=== PATIENT | male | born 1945 | race Caucasian/White ===

== ENCOUNTER 2016-09-17 00:46 | Emergency (ER) | payer MEDICARE ==
[~2016-09-17] VITALS: Ht 180.3 cm; Wt 81.6 kg
[~2016-09-17 00:46] MED LIST: DOCU-143 PO; FURO-124 PO; HYDR-3812 PO; LISI1TAB6 PO; RIVA15TA PO
--- OUTSIDE RECORDS SUMMARY | 2016-09-17 00:51 | XMS REPORT | Continuity of Care Document ---
Author Author [facility] Organization [facility] Address Unknown Phone Unavailable Care Team Providers Care Ham Sawyer Name Role Phone LONBETHANYNANO DO PCP Insurance Providers Payer Name Policy Number Subscriber Name Relationship [employer] [id number] Edwardo Herron 20 Self / Same As Patient Advance Directives Directive Response Recorded Date/Time Advance Directives No 03/10/16 7:26pm Resuscitation Status Full Code 03/10/16 7:26pm Chief Complaint and Reason for Visit Chief Complaint Lower Extremity Reason for Visit NON-OCCLUSIVE DVT LEFT LOWER LEG Problems No problem information available. Medications Current Home Medications Medication Dose Units Route Directions Days/Qty Instructions Start Date Lisinopril/Hydrochlorothiazide 1 Each 1 Tab Oral Daily 08/13/15 Rivaroxaban 15 Mg 15 Mg Oral Bid@07,17 42 08/14/15 Past Home Medications Medication Directions Ordered Status Hydrocodone/Acetaminophen 1 Each Tablet, 1 Tab Oral Every 4HRS as needed for 07/27/15 Discontinued Docusate Sodium 100 Mg Capsule, 100 Mg Oral Twice A Day 07/27/15 Discontinued Furosemide 40 Mg Tablet, 40 Mg Oral Daily 08/13/15 Discontinued Social History Social History Problem Response Recorded Date/Time Alcohol Use Denies Use 08/12/2015 6:00pm Recreational Drug Use No 08/12/2015 6:00pm Recent Foreign Travel No 03/10/2016 7:26pm Recent Infectious Disease Exposure No 03/10/2016 7:26pm Hospitalization with Isolation Denies 03/10/2016 7:26pm Smoking Status Former Smoker 03/10/2016 8:39pm Do you dip or chew tobacco? No 08/12/2015 6:05pm Type Used Cigarettes 03/10/2016 7:26pm Recent Hopitalizations No 03/10/2016 7:26pm Hospitalization with Isolation Denies 03/10/2016 7:26pm Query Response Start Date Stop Date Smoking Status Former Smoker 07/31/1998 Hospital Discharge Instructions No hospital discharge instructions. Plan of Care Discharge Date 03/10/16 8:59pm Disposition 01 HOME, SELF-CARE Condition at Discharge Improved Instructions/Education Provided 2 Gram Sodium Diet (ED) Deep Venous Thrombosis (ED) Prescriptions See Medication Section Referrals NANO FELIX DO - Primary Care Physician NANO FELIX DO - Primary Care Physician DEZ BAILEY MD FACP FACC CCDS - Additional Instructions/Education WEAR OMAYRA HOSE AT ALL TIMES ELEVATE LEGS MUCH POSSIBLE LIMIT SODIUM INTAKE TO 2 GRAMS PER DAY CONTINUE YOUR CURRENT MEDICATIONS PRESCRIBED, INCLUDING XARELTO KEEP YOUR APPOINTMENT WITH DR. BAILEY TOMORROW MORNING. All discharge instructions reviewed with patient and/or family. Voiced understanding. Functional Status No functional status results. Allergies, Adverse Reactions, Alerts No known allergies. Immunizations No immunization records. Vital Signs Acute Vital Signs Vital Response Date/Time Temperature (Fahrenheit) 99.6 degrees F (97.6 - 99.5) 03/10/2016 7:26pm Temperature (Calculated Celsius) 37.81034 degrees C (36.4 - 37.5) 03/10/2016 7:26pm Pulse Rate (adult) 98 bpm (60 - 90) 03/10/2016 7:26pm Respiratory Rate 18 bpm (12 - 24) 03/10/2016 7:26pm O2 Sat by Pulse Oximetry 96 % (88 - 100) 03/10/2016 7:26pm Pain Numeric Pain Scale 0-No Pain 03/10/2016 7:26pm Height (Feet) 5 feet 03/10/2016 7:26pm Height (Inches) 11 inches 03/10/2016 7:26pm Height (Calculated Centimeters) 180.192695 cm 03/10/2016 7:26pm Weight (Pounds) 180 pounds 03/10/2016 7:26pm Weight (Calculated Kilograms) 81.702354 kilograms 03/10/2016 7:26pm Capillary Refill Capillary Refill Less Than 3 Seconds 03/10/2016 7:26pm Height 5 ft 11 in Weight 180 lb Body Mass Index 25.1 kg/m^2 Results Laboratory Results Test Name Result Units Flags Reference Collection Date/Time Result Date/ Time Comments White Blood Count 11.3 10^3/uL H 4.3-11.0 03/10/2016 7:39pm 03/10/2016 7: 55pm Red Blood Count 4.46 10^6/uL 4.35-5.85 03/10/2016 7:39pm 03/10/2016 7: 55pm Hemoglobin 12.0 G/DL L 13.3-17.7 03/10/2016 7:39pm 03/10/2016 7:55pm Hematocrit 37 % L 40-54 03/10/2016 7:39pm 03/10/2016 7:55pm Mean Corpuscular Volume 82 FL 80-99 03/10/2016 7:39pm 03/10/2016 7: 55pm Mean Corpuscular Hemoglobin 27 PG 25-34 03/10/2016 7:39pm 03/10/2016 7: 55pm Mean Corpuscular Hemoglobin Concent 33 G/DL 32-36 03/10/2016 7:39pm 05/2016 7:55pm Red Cell Distribution Width 13.3 % 10.0-14.5 03/10/2016 7:39pm 2015 7:55pm Platelet Count 210 10^3/uL 130-400 03/10/2016 7:39pm 03/10/2016 7:55pm Mean Platelet Volume 9.6 FL 7.4-10.4 03/10/2016 7:39pm 03/10/2016 7: 55pm Neutrophils (%) (Auto) 50 % 42-75 03/10/2016 7:39pm 03/10/2016 7:55pm Lymphocytes (%) (Auto) 34 % 12-44 03/10/2016 7:39pm 03/10/2016 7:55pm Monocytes (%) (Auto) 14 % H 0-12 03/10/2016 7:39pm 03/10/2016 7:55pm Eosinophils (%) (Auto) 1 % 0-10 03/10/2016 7:39pm 03/10/2016 7:55pm Basophils (%) (Auto) 0 % 0-10 03/10/2016 7:39pm 03/10/2016 7:55pm Neutrophils # (Auto) 5.6 X 10^3 1.8-7.8 03/10/2016 7:39pm 03/10/2016 7: 55pm Lymphocytes # (Auto) 3.9 X 10^3 1.0-4.0 03/10/2016 7:39pm 03/10/2016 7: 55pm Monocytes # (Auto) 1.6 X 10^3 H 0.0-1.0 03/10/2016 7:39pm 03/10/2016 7: 55pm Eosinophils # (Auto) 0.2 10^3/uL 0.0-0.3 03/10/2016 7:39pm 03/10/2016 7 :55pm Basophils # (Auto) 0.1 10^3/uL 0.0-0.1 03/10/2016 7:39pm 03/10/2016 7: 55pm Prothrombin Time 18.9 SEC H 12.2-14.7 03/10/2016 7:39pm 03/10/2016 8: 03pm INR Comment 1.6 H 0.8-1.4 03/10/2016 7:39pm 03/10/2016 8:03pm INTERPRETIVE DATA SUGGESTED THERAPEUTIC RANGE FOR INR'S: VENOUS THROMBOSIS, PULMONARY EMBOLISM, OR PREVENTION OF SYSTEMIC EMBOLISM (EG. IN ATRIAL FIBRILLATION): 2.0 - 3.0 MECHANICAL PROSTHETIC HEART VALVES: 2.5 - 3.5* *NOTE: INR'S UP TO 4.5 MAY BE NECESSARY IN SELECTED GROUPS OF HIGH RISK PATIENTS. [employer] CONSENSUS CONFERENCE ON ANTITHROMBOTIC THERAPY (2000). Activated Partial Thromboplast Time 33 SEC 24-35 03/10/2016 7:39pm 05/2016 8:03pm Sodium Level 138 MMOL/L 135-145 03/10/2016 7:39pm 03/10/2016 8:14pm Potassium Level 3.8 MMOL/L 3.6-5.0 03/10/2016 7:39pm 03/10/2016 8:14pm Chloride Level 105 MMOL/L 98-107 03/10/2016 7:39pm 03/10/2016 8:14pm Carbon Dioxide Level 24 MMOL/L 21-32 03/10/2016 7:39pm 03/10/2016 8: 14pm Anion Gap 9 MMOL/L 5-14 03/10/2016 7:39pm 03/10/2016 8:14pm Blood Urea Nitrogen 17 MG/DL 7-18 03/10/2016 7:39pm 03/10/2016 8:14pm Creatinine 1.46 MG/DL H 0.60-1.30 03/10/2016 7:39pm 03/10/2016 8:14pm BUN/Creatinine Ratio 12 03/10/2016 7:39pm 03/10/2016 8:14pm Estimat Glomerular Filtration Rate 48 03/10/2016 7:39pm 03/10/2016 8:14pm GFR INTERPRETIVE DATA UNITS FOR ESTIMATED GFR (eGFR): mL/min/1.73 M2 REFERENCE RANGE FOR ESTIMATED GFR (eGFR) eGFR NORMAL eGFR >60 MODERATELY DECREASED eGFR 30-59 SEVERLY DECREASED eGFR 15-29 KIDNEY FAILURE <15 (OR DIALYSIS) Glucose Level 108 MG/DL H 70-105 03/10/2016 7:39pm 03/10/2016 8:14pm Calcium Level 9.7 MG/DL 8.5-10.1 03/10/2016 7:39pm 03/10/2016 8:14pm Procedures No known history of procedures. Encounters Encounter Location Arrival/Admit Date Discharge/Depart Date Attending Provider Departed Emergency Room [facility] 03/10/16 7:21pm 03/10 8:59pm LYNDSAY NG DO Recent Diagnosis
--- NOTE | 2016-09-17 00:57 | ED Lower Extremity ---
General Chief Complaint: Laceration Stated Complaint: LAC Nursing Triage Note: patient reports L foot bleeding after scratching himself Nursing Sepsis Screen: No Definite Risk Source: patient, EMS History of Present Illness Time seen by provider: 00:44 Initial Comments PT ARRIVES VIA EMS FROM HOME AT [facility] PT STATES HE WAS SITTING ON TOILET AND SCRATCHED HIS LEFT ANKLE AND IT BEGAN TO BLEED, AND HE GOT SCARED, SO CALLED NEUROPSYCHOLOGY DIVISION CHIEF, WHO CALLED EMS FOR PT. BLEEDING HAS STOPPED AT THIS TIME NO PAIN PT HAD SIMILAR 3-4 MONTHS AGO, BUT WAS ON BLOOD THINNER AT THAT TIME ( ? XARELTO ? ) FOR RECURRENT DVT OF LEFT LEG PT IS NO LONGER ON ANY KIND OF BLOOD THINNER, NOT EVEN ASPIRIN PCP: DR. FELIX [employer] SUPERVISOR: DR. BAILEY Allergies and Home Medications Allergies Coded Allergies: No Known Drug Allergies (Unverified , 07/22/15) Home Medications Lisinopril/Hydrochlorothiazide 1 Each Tablet 1 TAB PO DAILY (Reported) Rivaroxaban 15 Mg Tablet #42 15 MG PO BID@07,17 Prescribed by: GENARO RIVERA on 08/14/15 1048 Constitutional: no symptoms reported Musculoskeletal: see HPI Skin: see HPI Psychiatric/Neurological: No Symptoms Reported Past [id number] Hx Patient Social History Alcohol Use: Denies Use Recreational Drug Use: No Smoking Status: Former Smoker (QUIT SEVERAL YEARS AGO) Type Used: Cigarettes Former Smoker/When Quit: Jul 31, 1998 Recent Foreign Travel: No Contact w/Someone Who Travel: No Recent Infectious Disease Expo: No Recent Hopitalizations: No Immunizations Up To Date Tetanus Booster (TDap): Unknown Date of Pneumonia Vaccine: Jul 21, 2015 Date of Influenza Vaccine: Apr 30, 2015 Surgeries HX Surgeries: Yes (UMBILICAL HERNIA REPAIR 07/27/15) Surgeries: Abdominal Respiratory Hx Respiratory Disorders: No Cardiovascular Hx Cardiac Disorders: Yes (RECURRENT DVT LEFT LEG-- INITAL ONE 03/2015 WAS AFTER HE SUSTAINED A LEFT TIBIAL PLATUEAU FX AND WAS TREATED WITH IMMMOBILIZATION. THEN HAD POST OP DVT OF LEFT LEG 07/2015 AFTER HERNIA REPAIR; THEN HAD ANOTHER ONE 02/2016 AFTER SITTING NEARLY CONSTANTLY ALL DAY EVERY DAY FOR A MONTH, WHILE HIS WAS IN HOSPITAL DYING OF CANCER. ) Cardiac Disorders: Chronic Edema/Swelling, Deep Vein Thrombosis, Hypertension Neurological Hx Neurological Disorders: Yes (MILD MENTAL DEFICIENCY) Reproductive System Hx Reproductive Disorders: No Genitourinary Hx Genitourinary Disorders: No Gastrointestinal Hx Gastrointestinal Disorders: No Musculoskeletal Hx Musculoskeletal Disorders: Yes (LEFT TIBIAL PLATEAU FX 03/2015--[place] WITH IMMOBILIZATION) Endocrine Hx Endocrine Disorders: No HEENT HX ENT Disorders: No Cancer Hx Cancer: No Psychosocial Hx Psychiatric Problems: Yes (MILD MENTAL DEFICIENCY) Integumentary HX Skin/Integumentary Disorder: No Blood Transfusions Hx Blood Disorders: Yes (MULTIPLE DVT'S LEFT LEG) Family Medical History Family Medial History: Colon cancer Coronary thrombosis Physical Exam Vital Signs Vital Sign - Last 12Hours 09/17/16 00:48 Temp 98.2 Pulse 76 Resp 18 Pulse Ox 98 O2 Delivery Room Air Capillary Refill : Less Than 3 Seconds General Appearance: WD/WN no apparent distress other (ANXIOUS) HEENT: other (EDENTULOUS) Cardiovascular: regular rate, rhythm no murmur Respiratory: normal breath sounds Hips: bilateral hip normal inspection Legs: bilateral leg other (2+ EDEMA BILATERALLY) Knees: bilateral knee normal inspection Ankles: bilateral ankle other (2 + EDEMA BILATERALLY. NO ACTIVE BLEEDING. APPEARS TO HAVE A PINPOINT ABRASION OVER A SMALL, SUPERFICIAL VARICOSE VEIN OVER LEFT LATERAL MALLEOLUS. ALSO HAS A VERY SUPERFICIAL ABRASION JUST PROXIMAL TO THAT THAT WOULD BE CONSISTENT WITH SCRATCH BALDERAS-NO BLEEDING AT THIS SITE EITHER. AREA IS NON-TENDER. NO BRUISING OR FOCAL SWELLING AROUND THESE AREAS. 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 nml as tested no motor/sensory deficits alert normal mood/affect oriented x 3 Skin: normal color warm/dry other ( ABOVE) Progress/Results/Core Measures Results/Orders My Orders Orders-LYNDSAY NG DO Wound Dressing-Ed (09/17/16 00:54) Clonidine Tablet (Catapres Tablet) (09/17/16 01:00) Clonidine Tablet (Catapres Tablet) (09/17/16 01:00) Clonidine Tablet (Catapres Tablet) (09/17/16 01:00) Medications Given in ED Current Medications Medications Dose Ordered Sig/Thuan Route Start Time Stop Time Status Last Admin Dose Admin Clonidine HCl 0.2 mg ONCE ONCE PO 09/17/16 01:00 09/17/16 01:01 DC 09/17/16 00:59 0.2 MG Vital Signs/I&O Vital Sign - Last 12Hours 09/17/16 09/17/16 00:48 01:40 Temp 98.2 Pulse 76 66 Resp 18 18 B/P Pulse Ox 98 97 O2 Delivery Room Air Progress Note : Progress Note NO BLEEDING AT ANY TIME DURING ER STAY AREA CLEANED AND DRESSED WITH TRIPLE ANTIBIOTIC AND STERILE DRESSING GIVEN CLONIDINE FOR ELEVATED BP--BP DOWN PRIOR TO DISMISSAL UNEVENTFUL ER STAY Departure Impression Impression: Primary Impression: Abrasion, left ankle, initial encounter Additional Impression: Uncontrolled hypertension Disposition: HOME, SELF-CARE Condition: Stable Departure-Patient Inst. Referrals: NANO FELIX DO (PCP/Family) Primary Care Physician Patient Instructions: High Blood Pressure (DC), Skin Abrasions (DC) Add. Discharge Instructions: LEAVE DRESSING IN PLACE FOR 24 HOURS, THEN CLEAN TWICE A DAY WITH ANTIBACTERIAL SOAP AND WATER, AND APPLY FRESH BAND AID TO AREA IF AREA BEGINS TO BLEED AGAIN, APPLY PRESSURE, ELEVATE LEG AND APPLY ICE TO AREA TAKE YOUR MEDICATIONS PRESCRIBED FOLLOW UP WITH YOUR DR NEXT WEEK FOR FURTHER CARE All discharge instructions reviewed with patient and/or family. Voiced understanding. LYNDSAY NG DO Sep 17, 2016 00:57 LYNDSAY NG DO Sep 17, 2016 00:57
[2016-09-17] MEDS ORDERED: cloNIDine 0.1 MG (CATAPRES) TAB PO ONE (01:00)
[2016-09-17] MEDS ORDERED: cloNIDine 0.2 MG (CATAPRES) TAB PO ONE ×2 (01:00)
[2016-09-17 01:40] VITALS: BP 168/94
== END 2016-09-17 01:39 | disposition home or self-care (01) ==
LOC: EDUNIT# 00:46 → ER 00:48
DX: S90.512A Abrasion, left ankle, initial encounter (principal); I10 Essential (primary) hypertension; Z79.899 Other long term (current) drug therapy; Z87.891 Personal history of nicotine dependence; Z86.718 Personal history of other venous thrombosis and embolism; X58.XXXA Exposure to other specified factors, initial encounter; Y92.29 Other specified public building as the place of occurrence of the external cause; Y99.8 Other external cause status
CPT/HCPCS: 99283

== ENCOUNTER → 2017-02-24 | Outpatient (CLI) | payer MEDICARE ==
--- NOTE | 2017-02-24 14:20 | Diagnostic Imaging Report ---
INDICATION: Renal insufficiency. FINDINGS: There is [id number] bilateral hydronephrosis. The right kidney measures approximately 11.6 x 6.6 x 7 cm. Left kidney measures 12.3 x 6.6 x 6.2 cm. There is mild thinning of the renal cortex bilaterally. No renal calculi or masses demonstrated. The bladder is distended measuring upwards of the 24 cm in diameter. Bladder wall is smooth. Patient did not have sensation that he needed to empty bladder. IMPRESSION: 1. Bilateral moderate hydronephrosis with distended bladder. The cyst consistent with chronic outlet obstruction. Dictated by: Dictated on workstation # [id number]
== END ==
LOC: RAD 13:22
PROVIDERS: ATTEND Family Medicine
DX: N13.30 Unspecified hydronephrosis (principal); N32.89 Other specified disorders of bladder; I10 Essential (primary) hypertension
CPT/HCPCS: 76770

== ENCOUNTER 2017-03-21 10:56 | Outpatient (CLI) | payer MEDICARE ==
[~2017-03-21] VITALS: Ht 180.3 cm; Wt 89.4 kg
[2017-03-21 13:49] VITALS: BP 137/86
[2017-03-21] MEDS ORDERED: AMLO5TAB2 PO (13:57)
[2017-03-21] MEDS ORDERED: METO-274 PO (13:57)
[2017-03-21] MEDS ORDERED: BETH25TA11 PO (13:57)
[2017-03-21] MEDS ORDERED: FINA5TAB6 PO (13:57)
[2017-03-21] MEDS ORDERED: CIPR250T3 PO (13:57)
[2017-03-21] MEDS ORDERED: TAMS0.4C98 PO (13:57)
== END 2017-03-21 14:10 | disposition home or self-care (01) ==
LOC: PREOP 10:56
PROVIDERS: ATTEND Urology
DX: Z01.818 Encounter for other preprocedural examination (principal); R33.9 Retention of urine, unspecified
CPT/HCPCS: 87081

== ENCOUNTER 2017-03-22 07:14 | Day surgery (SDC) | payer MEDICARE ==
[~2017-03-22] VITALS: Ht 180.3 cm; Wt 89.4 kg
[2017-03-22 07:14] VITALS: BP 163/85
[~2017-03-22 07:14] MED LIST changes: +AMLO5TAB2 PO; +BETH25TA11 PO; +CIPR250T3 PO; +FINA5TAB6 PO; +METO-274 PO; +TAMS0.4C98 PO
--- OUTSIDE RECORDS SUMMARY | 2017-03-22 07:18 | XMS REPORT | Continuity of Care Document ---
Author Author [facility] Organization [facility] Address Unknown Phone Unavailable Allergies Active Description Code Type Severity Reaction Onset Reported/Identified Relationship to Patient Clinical Status Yes No Known Drug Allergies [id number] Drug Allergy Unknown N/ A 07/22/2015 Medications Problems Date Dx Coded Attending Type Code Diagnosis Diagnosed By 06/12/2015 NANO FELIX DO Ot R05 06/12/2015 NANO FELIX DO Ot R60.9 07/27/2015 NANO FELIX DO Ot R05 07/27/2015 NANO FELIX DO Ot R60.9 07/27/2015 ANKUSH YUAN APRN Ot S82.142D 07/27/2015 ANKUSH YUAN POLITICAL AIDE Ot W51.XXXD 07/27/2015 ANKUSH YUAN POLITICAL AIDE Ot Y92.321 07/27/2015 ANKUSH YUAN APRN Ot Y99.2 07/27/2015 IMAN MCCALL DO Ot K42.9 07/27/2015 MCCALLIMAN BAPTISTE DO D Ot Z01.818 07/27/2015 MCCALLJOYCELYN BAPTISTE DOTT D Ot Z11.2 07/27/2015 MCCALLJOYCELYN BPATISTE DOTT D Ot K42.9 07/27/2015 MCCALLJOYCELYN BAPTISTE DOTT D Ot Z01.818 07/27/2015 MCCALL DO IMAN D Ot Z11.2 07/27/2015 MCCALLOLIVA COSTA IMAN D Ot K42.9 UMBILICAL HERNIA WITHOUT OBSTRUCTION OR 07/27/2015 IMAN MCCALL DO Ot Z11.2 ENCOUNTER FOR SCREENING FOR OTHER BACTER 07/28/2015 ANKUSH YUAN POLITICAL AIDE Ot S82.142D 07/28/2015 ANKUSH YUAN POLITICAL AIDE Ot W51.XXXD 07/28/2015 ANKUSH YUAN POLITICAL AIDE Ot Y92.321 07/28/2015 LISSY, ANKUSH E POLITICAL AIDE Ot Y99.2 08/14/2015 [facility] Gooden Ot F79 UNSPECIFIED INTELLECTUAL DISABILITIES 08/14/2015 ISDIRO COSTA, NANO Gooden Ot I10 ESSENTIAL (PRIMARY) HYPERTENSION 08/14/2015 [facility] Gooden Ot I82.412 ACUTE EMBOLISM AND THROMBOSIS OF LEFT FE 08/14/2015 [facility] Gooden Ot I82.432 ACUTE EMBOLISM AND THROMBOSIS OF LEFT PO 08/14/2015 [facility], NANO Gooden Ot Z82.3 FAMILY HISTORY OF STROKE 08/14/2015 [facility], NANO Gooden Ot Z87.891 PERSONAL HISTORY OF NICOTINE DEPENDENCE 09/03/2015 ANAMARIA DO, KIN Lee Ot R22.42 09/17/2015 LISSY, ANKUSH E POLITICAL AIDE Ot S82.142D DISPL BICONDYLAR FX L TIBIA, SUBS FOR CL 09/17/2015 LISSY, ANKUSH E POLITICAL AIDE Ot W51.XXXD ACCIDENTAL STRIKE OR BUMPED INTO BY ANOT 09/17/2015 LISSY, ANKUSH E POLITICAL AIDE Ot Y92.[address] 09/17/2015 LISSY, ANKUSH E POLITICAL AIDE Ot Y99.2 VOLUNTEER ACTIVITY 09/23/2015 LISSY, ANKUSH E POLITICAL AIDE Ot S82.142D 09/23/2015 LISSY, ANKUSH E POLITICAL AIDE Ot W51.XXXD 09/23/2015 LISSY, ANKUSH E POLITICAL AIDE Ot Y92.321 09/23/2015 LISSY, ANKUSH E POLITICAL AIDE Ot Y99.2 10/09/2015 LISSY, ANKUSH E POLITICAL AIDE Ot S82.142D DISPL BICONDYLAR FX L TIBIA, SUBS FOR CL 10/09/2015 LISSY, ANKUSH E POLITICAL AIDE Ot W51.XXXD ACCIDENTAL STRIKE OR BUMPED INTO BY ANOT 10/09/2015 LISSY, ANKUSH E POLITICAL AIDE Ot Y92.[address] 10/09/2015 LISSY, ANKUSH E POLITICAL AIDE Ot Y99.2 VOLUNTEER ACTIVITY 03/10/2016 LYNDSAY NG DO Ot I82.432 ACUTE EMBOLISM AND THROMBOSIS OF LEFT PO 03/10/2016 LYNDSAY NG DO Ot M79.89 OTHER SPECIFIED SOFT TISSUE DISORDERS 03/10/2016 LYNDSAY NG DO Ot R60.0 LOCALIZED EDEMA 03/10/2016 BERENICE COSTA LYNDSAY [place] Ot Z79.01 INTERMEDIATE (CURRENT) USE OF ANTICOAGULANT 03/10/2016 BERENICE LYNDSAY COSTA Ot Z86.718 PERSONAL HISTORY OF OTHER VENOUS THROMBO 03/14/2016 BERENICE LYNDSAY COSTA Ot I82.432 ACUTE EMBOLISM AND THROMBOSIS OF LEFT PO 03/14/2016 BERENICE LYNDSAY COSTA Ot M79.89 OTHER SPECIFIED SOFT TISSUE DISORDERS 03/14/2016 BERENICE LYNDSAY COSTA Ot R60.0 LOCALIZED EDEMA 03/14/2016 BERENICE DO LYNDSAY K Ot Z79.01 BRINE PURIFIER (CURRENT) USE OF ANTICOAGULANT 03/14/2016 BERENICE DO LYNDSAY K Ot Z86.718 PERSONAL HISTORY OF OTHER VENOUS THROMBO 07/12/2016 [facility] Ot R05 COUGH 07/12/2016 [facility] DON[facility] Ot R60.9 EDEMA, UNSPECIFIED 07/12/2016 ZEBULON DOIMAN Ot K42.9 UMBILICAL HERNIA WITHOUT OBSTRUCTION OR 07/12/2016 MCCALLIMAN BAPTISTE DO Ot Z01.818 ENCOUNTER FOR OTHER PREPROCEDURAL EXAMIN 07/12/2016 ZEBULON IMAN COSTA Ot Z11.2 ENCOUNTER FOR SCREENING FOR OTHER BACTER 07/12/2016 KIN CONRAD DO Ot R22.42 LOCALIZED SWELLING, MASS AND LUMP, LEFT 08/09/2016 [facility] NANO COSTA Ot R59.0 LOCALIZED ENLARGED LYMPH NODES 09/17/2016 LYNDSAY NG DO Ot I10 ESSENTIAL (PRIMARY) HYPERTENSION 09/17/2016 LYNDSAY NG DO Ot S90.512A ABRASION, LEFT ANKLE, INITIAL ENCOUNTER 09/17/2016 LYNSDAY NG DO Ot S91.012A LACERATION WITHOUT FOREIGN BODY, LEFT AN 09/17/2016 LYNDSAY NG DO Ot X58.XXXA EXPOSURE TO OTHER SPECIFIED FACTORS, INI 09/17/2016 LYNDSAY NG DO Ot Y92.[address] 09/17/2016 LYNDSAY NG DO Ot Y99.8 OTHER EXTERNAL CAUSE STATUS 09/17/2016 LYNDSAY NG DO Ot Z79.899 OTHER INTERMEDIATE (CURRENT) DRUG THERAPY 09/17/2016 LYNDSAY NG DO Ot Z86.718 PERSONAL HISTORY OF OTHER VENOUS THROMBO 09/17/2016 LYNSDAY NG DO Ot Z87.891 PERSONAL HISTORY OF NICOTINE DEPENDENCE 09/20/2016 LYNDSAY NG DO Ot I10 ESSENTIAL (PRIMARY) HYPERTENSION 09/20/2016 LYNDSAY NG DO Ot S90.512A ABRASION, LEFT ANKLE, INITIAL ENCOUNTER 09/20/2016 LYNDSAY NG DO Ot S91.012A LACERATION WITHOUT FOREIGN BODY, LEFT AN 09/20/2016 LYNDSAY NG DO Ot X58.XXXA EXPOSURE TO OTHER SPECIFIED FACTORS, INI 09/20/2016 LYNDSAY NG DO Ot Y92.[address] 09/20/2016 LYNDSAY NG DO Ot Y99.8 OTHER EXTERNAL CAUSE STATUS 09/20/2016 LYNDSAY NG DO Ot Z79.899 OTHER INTERMEDIATE (CURRENT) DRUG THERAPY 09/20/2016 LYNDSAY NG DO Ot Z86.718 PERSONAL HISTORY OF OTHER VENOUS THROMBO 09/20/2016 LYNDSAY NG DO Ot Z87.891 PERSONAL HISTORY OF NICOTINE DEPENDENCE 02/27/2017 LONDER DO, NANO Gooden Ot I10 ESSENTIAL (PRIMARY) HYPERTENSION 02/27/2017 GELLENDER DO, NANO Gooden Ot N13.30 UNSPECIFIED HYDRONEPHROSIS 02/27/2017 GELLENDER DO, NANO Gooden Ot N32.89 OTHER SPECIFIED DISORDERS OF BLADDER 02/28/2017 GELLENDER DO, NANO Gooden Ot I10 ESSENTIAL (PRIMARY) HYPERTENSION 02/28/2017 GELLENDER DO, NANO Gooden Ot N13.30 UNSPECIFIED HYDRONEPHROSIS 02/28/2017 GELLENDER DO, NANO Gooden Ot N32.89 OTHER SPECIFIED DISORDERS OF BLADDER 02/28/2017 GELLENDER DO, NANO Gooden Ot I10 ESSENTIAL (PRIMARY) HYPERTENSION 02/28/2017 GELLENDER DO, NANO Gooden Ot N13.30 UNSPECIFIED HYDRONEPHROSIS 02/28/2017 GELLENDER DO, NANO Gooden Ot N32.89 OTHER SPECIFIED DISORDERS OF BLADDER Procedures Results Test Result Range Complete blood count (CBC) with automated white blood cell (WBC) differential - 03/10/16 19:39 Blood leukocytes automated count (number/volume) 11.3 10*3/ uL 4.3-11.0 Blood erythrocytes automated count (number/volume) 4.46 10*6 /uL 4.35-5.85 Venous blood hemoglobin measurement (mass/volume) 12.0 g/dL 13.3-17.7 Blood hematocrit (volume fraction) 37 % 40-54 Automated erythrocyte mean corpuscular volume 82 [foz_us] 80-99 Automated erythrocyte mean corpuscular hemoglobin (mass per erythrocyte) 27 pg 25-34 Automated erythrocyte mean corpuscular hemoglobin concentration measurement ( mass/volume) 33 g/dL 32-36 Automated erythrocyte distribution width ratio 13.3 % 10.0-14.5 Automated blood platelet count (count/volume) 210 10*3/uL 130-400 Automated blood platelet mean volume measurement 9.6 [foz_us ] 7.4-10.4 Automated blood neutrophils/100 leukocytes 50 % 42-75 Automated blood lymphocytes/100 leukocytes 34 % 12-44 Blood monocytes/100 leukocytes 14 % 0-12 Automated blood eosinophils/100 leukocytes 1 % 0-10 Automated blood basophils/100 leukocytes 0 % 0-10 Blood neutrophils automated count (number/volume) 5.6 10*3 1.8-7.8 Blood lymphocytes automated count (number/volume) 3.9 10*3 1.0-4.0 Blood monocytes automated count (number/volume) 1.6 10*3 0.0-1.0 Automated eosinophil count 0.2 10*3/uL 0.0-0.3 Automated blood basophil count (count/volume) 0.1 10*3/uL 0.0-0.1 PT panel in platelet poor plasma by coagulation assay - 03/10/16 19:39 Prothrombin time (PT) in platelet poor plasma by coagulation assay 18.9 s 12.2-14.7 INR in platelet poor plasma or blood by coagulation assay 1.6 0.8-1.4 Activated partial thromboplastin time (aPTT) in platelet poor plasma bycoagulation assay - 03/10/16 19:39 Activated partial thromboplastin time (aPTT) in platelet poor plasma bycoagulation assay 33 s 24-35 Whole blood basic metabolic panel - 03/10/16 19:39 Serum or plasma sodium measurement (moles/volume) 138 mmol/ L 135-145 Serum or plasma potassium measurement (moles/volume) 3.8 mmol/L 3.6-5.0 Serum or plasma chloride measurement (moles/volume) 105 mmol /L 98-107 Carbon dioxide 24 mmol/L 21-32 Serum or plasma anion gap determination (moles/volume) 9 mmol/L 5-14 Serum or plasma urea nitrogen measurement (mass/volume) 17 mg/dL 7-18 Serum or plasma creatinine measurement (mass/volume) 1.46 mg /dL 0.60-1.30 Serum or plasma urea nitrogen/creatinine mass ratio 12 NRG Serum or plasma creatinine measurement with calculation of estimated glomerular filtration rate 48 NRG Serum or plasma glucose measurement (mass/volume) 108 mg/dL 70-105 Serum or plasma calcium measurement (mass/volume) 9.7 mg/dL 8.5-10.1 Encounters ACCT No. Visit Date/Time Discharge Status Pt. Type Provider Facility Loc./Unit Complaint [id number] 02/24/2017 13:22:00 2016 23:59:59 CLS Outpatient NANO FELIX DO [facility] RAD HYPERTENSION [id number] 09/17/2016 00:48:00 2016 01:39:00 DIS Emergency LYNDSAY NG DO [facility] ER LAC [id number] 07/12/2016 11:48:00 2015 23:59:59 CLS Outpatient NANO FELIX DO [facility] RAD LEFT INGUINAL LYMPH NODE [id number] 03/10/2016 19:21:00 2015 20:59:00 DIS Emergency BERENICE LYNDSAY COSTA [facility] ER L LEG SWELLING,PAIN [id number] 09/25/2015 09:31:00 2015 12:10:00 DIS Outpatient ANKUSH YUAN APRN [facility] REHAB L KNEE LATERAL TIBIAL PLATEAU FRACTURE [id number] 09/17/2015 10:23:00 2015 00:01:00 DIS Outpatient ANKUSH YUAN APRN [facility] REHAB L KNEE LATERAL TIBIAL PLATEAU FRACTURE [id number] 08/12/2015 17:36:00 2015 11:08:00 DIS Inpatient NANO FELIX DO [facility] 4TH DVT L LOWER LEG [id number] 08/12/2015 16:10:00 2015 23:59:59 CLS Outpatient KIN CONRAD DO [facility] RAD SEVERE LEFT LEG SWELLING [id number] 07/27/2015 08:16:00 2014 17:40:00 DIS Outpatient IMAN MCCALL DO [facility] SDC HERINA [id number] 07/22/2015 14:10:00 2014 23:59:59 CLS Outpatient IMAN MCCALL DO [facility] PREOP HERINA [id number] 05/22/2015 11:10:00 2014 23:59:59 CLS Outpatient NANO FELIX DO [facility] RAD EDEMA,COUGH [id number] 04/24/2015 09:58:00 2014 23:59:59 CLS Outpatient SIRIA SMITH [facility] QUICK
--- NOTE | 2017-03-22 07:26 | Progress Note-Pre Operative ---
Pre-Operative Progress Note H&P Reviewed The H&P was reviewed, patient examined and no changes noted. Date Seen by Provider: Mar 22, 2017 Time Seen by Provider: 07:25 Date H&P Reviewed: Mar 22, 2017 Time H&P Reviewed: :25 Pre-Operative Diagnosis: NEUROGENIC BLADDER, BPH, AND URINE RETENTION ZAIDA DHILLON MD Mar 22, 2017 7:26 am
--- NOTE | 2017-03-22 07:27 | Progress Note-Post Operative ---
Post-Operative Progess Note Surgeon (s)/Restaurant Host/Hostess (s) Surgeon ZAIDA DHILLON MD Restaurant Host/Hostess: N/A Pre-Operative Diagnosis NEUROGENIC BLADDER, BPH, AND URINE RETENTION Post-Operative Diagnosis SAME Procedure & Operative Findings Date of Procedure 03/22/17 Procedure Performed/Findings SUPRAPUBIC CYSTOSTOMY TUBE PLACEMENT Anesthesia Type GENERAL Estimated Blood Loss Estimated blood loss (mL): LESS THAN 50CC Specimens/Packing Specimens Removed N/A Packing: N/A ZAIDA DHILLON MD Mar 22, 2017 7:27 am
[2017-03-22] MEDS ORDERED: cefTRIAXone 1 GM/NS 50 ML IVPB IV ONE ×2 (07:45)
[2017-03-22] MEDS: LACTATED RINGERS 1,000 ML IV PRN ×2 (08:07→09:56)
[2017-03-22] MEDS ORDERED: MIDAZOLAM 2 MG/2 ML (VERSED) VIAL ONE (08:22)
[2017-03-22] MEDS ORDERED: ONDANSETRON 4 MG/2 ML (SDV) Z0FRAN ONE (08:22)
[2017-03-22] MEDS ORDERED: LACTATED RINGERS 1,000 ML IV ONE ×2 (08:22→09:33)
[2017-03-22] MEDS ORDERED: SEVOFLURANE (ULTANE) 15 ML INHAL SOLN ONE ×3 (08:22→09:33)
[2017-03-22] MEDS ORDERED: fentaNYL INJECTION 100 MCG/2 ML AMP ONE (08:22)
[2017-03-22] MEDS ORDERED: LIDOCAINE PF 2% 5 ML (XYLOCAINE) VIAL ONE (08:22)
[2017-03-22] MEDS ORDERED: proPOfol 200 MG/20 ML (DIPRIVAN) VIAL IV ONE ×2 (08:22→09:37)
[2017-03-22] MEDS ORDERED: GENTAMICIN 40 MG/ML 2 ML INJ SDV ONE (08:23)
[2017-03-22] MEDS ORDERED: LIDOCAINE 1% INJ 20 ML (XYLOCAINE) VIAL ONE (08:23)
[2017-03-22] MEDS ORDERED: morphine INJ 10 MG/ML 1ML (SYR OR VIAL) ONE (10:09)
[2017-03-22] MEDS ORDERED: KETOROLAC 30 MG/ML VIAL IVP PRN (10:15)
[2017-03-22] MEDS ORDERED: HYDROcodone/APAP 10 MG/325 MG (LORTAB) TAB PO PRN (10:15)
[2017-03-22] MEDS ORDERED: ONDANSETRON 4 MG/2 ML (SDV) Z0FRAN IVP PRN (10:30)
[2017-03-22] MEDS ORDERED: morphine INJ 10 MG/ML 1ML (SYR OR VIAL) IVP PRN (10:30)
[2017-03-22 10:50] VITALS: BP 157/81
--- NOTE | 2017-03-22 11:19 | OPERATIVE REPORT ---
DATE OF SERVICE: 03/22/2017 PREOPERATIVE DIAGNOSIS: Neurogenic bladder with urine retention. POSTOPERATIVE DIAGNOSIS: Neurogenic bladder with urine retention. OPERATION PERFORMED: Suprapubic tube placement. SURGEON: Samy Dhillon MD ANESTHESIA: General. COMPLICATIONS: None. PROCEDURE: Under satisfactory general anesthesia, the patient in the supine position, the abdomen, genitalia and thigh were prepped and draped in usual sterile fashion. This was done after draining the bladder through the present 3-way catheter inserted sterilely. Two liters of cloudy type urine was drained and then the bladder was filled with 1 liter of solution with gentamicin amp and the catheter was clamped. Incision was made from the symphysis towards the umbilicus for a 2-3 cm, carried through the skin and subcutaneous tissue and fascia. The midline was identified. The bladder was identified, confirmed by draining fluid from it with a syringe and needle. A stab was performed in the anterior wall of the bladder through which a 22-Tajik 2-way 5 mL balloon catheter was inserted and the balloon was inflated to 10 mL and pushed inside, away from closing. A couple of sutures were put to make it watertight around the suprapubic tube using 0 chromic catgut in layers. There was no need to drain. Hemostasis was complete. The fascia was closed with interrupted 0 Vicryl, the subcutaneous tissue with interrupted 3-0 plain and the skin with holly. The suprapubic tube was secured in position with suture and connected to gravity. The Muhammad catheter was removed at the end of the procedure. Dressing was applied. Needle, sponge and instrument counts were correct x2. Estimated blood loss not measurable. Less than 50 mL. The patient tolerated the procedure and anesthesia well and was sent to the recovery room in stable condition. Job ID: [id number] DocumentID: [id number] Dictated Date: 03/22/2017 10:20:02 Environmental Planner Date: 03/22/2017 11:18:04 Dictated By: SAMY DHILLON MD
[2017-03-22] MEDS: D5 LR IV SOLUTION 1,000 ML IV SCH ×2 (13:03→18:44)
[2017-03-22 15:35] VITALS: BP 135/73
[2017-03-22 20:00] VITALS: BP 144/75
[2017-03-22 23:59] VITALS: BP 135/75
[2017-03-23 04:00] VITALS: BP 134/76
[2017-03-23 08:40] VITALS: BP 151/79
[2017-03-23 12:00] VITALS: BP 170/80
--- NOTE | 2017-03-23 12:21 | Progress Note-Urology ---
Progress Note-Urology Progress Notes/Assess & Plan Progress/Assessment & Plan DOING VERY WELL, NO COMPLAINTS, HOME Final Diagnosis URINE RETENTION AND NEUROGENIC BLADDER ZAIDA DHILLON MD Mar 23, 2017 12:21 pm
--- NOTE | 2017-03-23 12:24 | Discharge Inst-Urology ---
Discharge Inst-Urology Discharge Medications New, Converted, or Re-newed RX: RX given to Patient/Fam Patient Instructions/Follow Up Plan Please make appointment to been seen in office in 10 days May shower, no bath Keep bowels soft and moving Increase oral fluids for 48 hours and then as needed. Diet and Activity as tolerated. If questions or concerns contact your physician Or seek help at emergency department. ZAIDA DHILLON MD Mar 23, 2017 12:24 pm
--- NOTE | 2017-03-23 12:31 | D/C HH Face to Face Order ---
D/C Face to Face Orders Instructions for Patient Patient Instructions/FollowUp: given Physician to follow Patient: 10 days Discharge Diet for Home: Regular Diet Patient Data-Allergies,Ht & Wt Patient Allergies: Coded Allergies: No Known Drug Allergies (Unverified , 07/22/15) Height (Feet): 5 Height (Inches): 11.00 Weight (Pounds): 197 Weight (Ounces): 0.0 Home Health Need/Face to Face Date of Face to Face: Mar 24, 2017 Clinical Findings: Other-list in note postop I have seen Pt [id number]: Yes Discharged To: Home Diagnosis/Conditions: urine retention with suprapubic tube Problems/Diagnosis/Condition: Patient is Homebound due to: Pain w/ambulation postoperative Homebound Status Due to the above stated illness, injury or surgical procedure (medical condition or diagnosis) and associated clinical findings, the patient is homebound because of his/her inability to leave home except with aid of a supportive device and/or person AND leaving the home requires a considerable and taxing effort or is medically contraindicated. Pt req the following assistanc: Aid of another person Home Health Nursing Orders Home Health Services Order: Nursing Services, Wound Care-Eval/Treat, Other ( suprapubic care) Home Health Infusion Therapy Line Start Date: Mar 22, 2017 Line Start Time: 0807 Site Location: Forearm Certify Stmt I certify that this patient is under my care and that I, a nurse practitioner or a physician; a assistant printer floor covering working with me, had a face to face encounter that - meets the physician face to face encounter requirements with this patient as dated. ZAIDA DHILLON MD Mar 23, 2017 12:31
--- NOTE | 2017-03-23 13:03 | Anesthesia-General Post-Op ---
General Patient Condition Mental Status/LOC: Same as Preop Cardiovascular: Satisfactory Nausea/Vomiting: Absent Respiratory: Satisfactory Pain: Controlled Complications: Absent Post Op Complications Complications None Follow Up Care/Instructions Patient Instructions None needed. Anesthesia/Patient Condition Patient Condition Patient is doing well, no complaints, stable vital signs, no apparent adverse anesthesia problems. No complications reported per nursing. TREY MORALES CRNA Mar 23, 2017 13:03
[2017-03-23] MEDS ORDERED: HYDR-3874 PO (13:05)
[2017-03-23] MEDS ORDERED: CIPR-225 PO (13:05)
== END 2017-03-23 13:50 | disposition home health service (06) ==
LOC: SDC 07:14 → 4TH 10:50 → SDC 03-23 13:50
PROVIDERS: ATTEND Urology
DX: N31.9 Neuromuscular dysfunction of bladder, unspecified (principal); R33.9 Retention of urine, unspecified; I10 Essential (primary) hypertension; Z86.718 Personal history of other venous thrombosis and embolism; Z79.899 Other long term (current) drug therapy; F70 Mild intellectual disabilities

== ENCOUNTER 2017-04-20 19:11 | Emergency (ER) | payer MEDICARE ==
[~2017-04-20] VITALS: Ht 180.3 cm; Wt 88.5 kg
[~2017-04-20 19:11] MED LIST changes: +CIPR-225 PO; +HYDR-3874 PO
--- NOTE | 2017-04-20 19:42 | ED GU-Male ---
General Stated Complaint: BLOOD IN URINE Source: patient, old records Exam Limitations: other (PT IS VERY LIMITED HISTORIAN ) History of Present Illness Time seen by provider: 19:27 Initial Comments PT ARRIVES VIA POV PT HAD SUPRAPUBIC CATH PLACED BY DR. DHILLON ON 03/22/17 AND HAS HAD AN INDWELLING CATHETER IN PLACE SINCE THEN. CATHETER HAS NOT BEEN CHANGED AT ANY TIME. HAS FOLLOW UP APPOINTMENT WITH DR. DHILLON 05/12/17 TO HAVE CATHETER CHANGED TONIGHT, JUST PRIOR TO ARRIVAL, PT NOTED BLOOD IN URINE, SO CAME HERE NO PAIN NO FEVER PT IS NOT ON BLOOD THINNERS AT THIS TIME, EVEN THOUGH HE HAS HAD MULTIPLE DVT'S IN LEFT LEG--LAST ONE 02/2016. PT DOES NOT RECALL WHEN BLOOD THINNER WAS DC'D PCP: DR. FELIX UROLOGIST: DR. DHILLON Allergies and Home Medications Allergies Coded Allergies: No Known Drug Allergies (Unverified , 07/22/15) Home Medications Amlodipine Besylate 5 Mg Tablet, 5 MG PO DAILY, (Reported) Metoprolol Succinate 100 Mg Tab.er.24h, 100 MG PO DAILY, (Reported) Nitrofurantoin Monohyd/M-Cryst 100 Mg Capsule, 100 MG PO BID, #30 Prescribed by: LYNDSAY NG on 04/20/172017 Constitutional: no symptoms reported Respiratory: no symptoms reported Cardiovascular: no symptoms reported Gastrointestinal: no symptoms reported Genitourinary: see HPI Musculoskeletal: no symptoms reported Skin: no symptoms reported Psychiatric/Neurological: No Symptoms Reported Endocrine: No Symptoms Reported Hematologic/Lymphatic: No Symptoms Reported Past Fuiewea-Ruorbj-Wmciqo Hx Patient Social History Alcohol Use: Denies Use Recreational Drug Use: No Smoking Status: Former Smoker Type Used: Cigarettes Former Smoker, Quit: Mar 21, 1999 Recent Foreign Travel: No Contact w/Someone Who Travel: No Recent Hopitalizations: No Immunizations Up To Date Tetanus Booster (TDap): Unknown Date of Pneumonia Vaccine: Jul 21, 2015 Date of Influenza Vaccine: Apr 30, 2015 Seasonal Allergies Seasonal Allergies: No Surgeries History of Surgeries: Yes (UMBILICAL HERNIA REPAIR 07/27/15; SUPRAPUBIC CATHETER 03/22/17) Surgeries: Abdominal, Bladder Surgery Respiratory History of Respiratory Disorde: No Cardiovascular History of Cardiac Disorders: Yes (RECURRENT DVT'S LEFT LEG--INITIAL ONE 2014 AFTER HE SUSTAINED LEFT TIBIAL PLATEAU FX AND TX WITH IMMOBILIZATION; THEN POST OP LEFT LEG DVT AFTER HERNIA REPAIR 07/2015; THEN ANOTHER ONE 02/2016 AFTER SITTING CONSTANTLY DAY AND NIGHT FOR A MONTH WHILE HIS WAS IN HOSPITAL DYING OF CANCER. ) Cardiac Disorders: Chronic Edema/Swelling, Deep Vein Thrombosis, Hypertension Neurological History of Neurological Disord: Yes (MILD COGNITIVE IMPAIRMENT) Reproductive System Hx Reproductive Disorders: No Genitourinary History of Genitourinary Disor: Yes (SUPRAPUBIC CATH 03/22/17 FOR NEUROGENIC BLADDER AND OUTLET OBSTRUCTION) Genitourinary Disorders: Benign Prostatic Hyperpl, Neurogenic Bladder Gastrointestinal History of Gastrointestinal Di: Yes (HERNIA REPAIR) Gastrointestinal Disorders: Abdominal Hernia, Gastroesophageal Reflux Musculoskeletal History of Musculoskeletal Dis: Yes (LEFT TIBIAL PLATEAU FX 03/2015--TX WITH IMMOBILIZATION) Musculoskeletal Disorders: Fractures Endocrine History of Endocrine Disorders: No HEENT History of HEENT Disorders: No Cancer History of Cancer: No Psychosocial History of Psychiatric Problem: No (MILD COGNITIVE IMPAIRMENT) Integumentary History of Skin or Integumenta: No Blood Transfusions History of Blood Disorders: Yes (MULTIPLE DVT'S LEFT LEG) Family Medical History Family Medial History: Colon cancer Coronary thrombosis Physical Exam Vital Signs Vital Sign - Last 12Hours 04/20/17 19:23 Temp 98.1 Pulse 74 Resp 18 B/P (MAP) 164/89 Pulse Ox 100 O2 Delivery Room Air Capillary Refill : General Appearance: WD/WN, no apparent distress Cardiovascular: regular rate, rhythm, no murmur Respiratory: normal breath sounds, no respiratory distress Gastrointestinal: normal bowel sounds, non tender, soft, other (SUPRAPUBIC CATHETER IN PLACE) Back: no CVA tenderness Extremities: no calf tenderness, pedal edema (1-2+ EDEMA BILATERALLY) Neurologic/Psychiatric: photographer model II-XII nml as tested, no motor/sensory deficits, alert, normal mood/affect, oriented x 3 Skin: normal color, warm/dry Progress/Results/Core Measures Results/Orders Lab Results Laboratory Tests Test 04/20/17 19:30 04/20/17 19:40 Range/Units White Blood Count 11.8 H 4.3-11.0 10^3/uL Red Blood Count 4.37 4.35-5.85 10^6/uL Hemoglobin 11.3 L 13.3-17.7 G/DL Hematocrit 35 L 40-54 % Mean Corpuscular Volume 81 80-99 FL Mean Corpuscular Hemoglobin 26 25-34 PG Mean Corpuscular Hemoglobin Concent 32 32-36 G/DL Red Cell Distribution Width 14.1 10.0-14.5 % Platelet Count 182 130-400 10^3/uL Mean Platelet Volume 9.3 7.4-10.4 FL Neutrophils (%) (Auto) 50 42-75 % Lymphocytes (%) (Auto) 35 12-44 % Monocytes (%) (Auto) 11 0-12 % Eosinophils (%) (Auto) 3 0-10 % Basophils (%) (Auto) 1 0-10 % Neutrophils # (Auto) 5.9 1.8-7.8 X 10^3 Lymphocytes # (Auto) 4.2 H 1.0-4.0 X 10^3 Monocytes # (Auto) 1.3 H 0.0-1.0 X 10^3 Eosinophils # (Auto) 0.4 H 0.0-0.3 10^3/uL Basophils # (Auto) 0.1 0.0-0.1 10^3/uL Prothrombin Time 13.7 12.2-14.7 SEC INR Comment 1.0 0.8-1.4 Activated Partial Thromboplast Time 26 24-35 SEC Sodium Level 135 135-145 MMOL/L Potassium Level 4.3 3.6-5.0 MMOL/L Chloride Level 101 98-107 MMOL/L Carbon Dioxide Level 24 21-32 MMOL/L Anion Gap 10 5-14 MMOL/L Blood Urea Nitrogen 26 H 7-18 MG/DL Creatinine 1.62 H 0.60-1.30 MG/DL Estimat Glomerular Filtration Rate 42 BUN/Creatinine Ratio 16 Glucose Level 106 H 70-105 MG/DL Calcium Level 9.2 8.5-10.1 MG/DL Total Bilirubin 0.4 0.1-1.0 MG/DL Aspartate Amino Transf (AST/SGOT) 20 5-34 U/L Alanine Aminotransferase (ALT/SGPT) 18 0-55 U/L Alkaline Phosphatase 95 40-136 U/L Total Protein 7.5 6.4-8.2 GM/DL Albumin 3.8 3.2-4.5 GM/DL Urine Color YELLOW Urine Clarity SLIGHTLY CLOUDY Urine pH 7 5-9 Urine Specific Gobler 1.010 L 1.016-1.022 Urine Protein 2+ H NEGATIVE Urine Glucose (UA) NEGATIVE NEGATIVE Urine Ketones NEGATIVE NEGATIVE Urine Nitrite POSITIVE H NEGATIVE Urine Bilirubin NEGATIVE NEGATIVE Urine Urobilinogen NORMAL NORMAL MG/DL Urine Leukocyte Esterase 3+ H NEGATIVE Urine RBC (Auto) 4+ H NEGATIVE Urine RBC 25-50 H /HPF Urine WBC 10-25 H /HPF Urine Crystals PRESENT H /LPF Urine Amorphous Sediment FEW KOREY URATES H /LPF Urine Bacteria MODERATE H /HPF Urine Casts NONE /LPF Urine Mucus NEGATIVE /LPF Urine Culture Indicated YES My Orders Orders - LYNDSAY NG DO Ct Abd/Pelvis Wo(Kidney Stone) (04/20/17 19:28) Cbc With Automated Diff (04/20/17 19:28) Comprehensive Metabolic Panel (04/20/17 19:28) Ua Culture If Indicated (04/20/17 19:28) Acute Abd Series (04/20/17 19:28) Saline Lock/Iv-Start (04/20/17 19:28) Protime With Inr (04/20/17 19:28) Partial Thromboplastin Time (04/20/17 19:28) Urine Culture (04/20/17 19:40) Ceftriaxone Injection (Rocephin Injectio (04/20/17 20:15) Vital Signs/I&O Vital Sign - Last 12Hours 04/20/17 19:23 Temp 98.1 Pulse 74 Resp 18 B/P (MAP) 164/89 Pulse Ox 100 O2 Delivery Room Air Progress Note : Progress Note UNEVENTFUL ER STAY Diagnostic Imaging Comments ACUTE ABDOMEN XRAYS--NO ACUTE PROCESS, PER RADIOLOGIST REPORT CT ABDOMEN/PELVIS--MILD BILATERAL HYDRONEPHROSIS, MILD BLADDER WALL THICKENING WITH INDWELLING SUPRAPUBIC CATHETER--PER RADIOLOGIST REPORT AT 2013 Reviewed: Reviewed by Me Departure Impression Impression: Primary Impression: UTI WITH HEMATURIA Additional Impressions: INDWELLING SUPRAPUBIC CATHETER Chronic renal insufficiency Disposition: 01 HOME, SELF-CARE Condition: Stable Departure-Patient Inst. Referrals: NANO FELIX DO (PCP/Family) Primary Care Physician ZAIDA DHILLON MD Patient Instructions: How to Care for Your Suprapubic Urinary Catheter, How to Prevent Catheter Associated Urinary Tract Infections, Urinary Tract Infection, Adult (DC) Add. Discharge Instructions: LOTS OF CLEAR LIQUIDS TAKE YOUR REGULAR MEDICATIONS PRESCRIBED FOLLOW UP WITH DR. DHILLON IN 3-4 DAYS FOR FURTHER CARE Scripts Nitrofurantoin Monohyd/M-Cryst (Macrobid 100 mg Capsule) 100 Mg Capsule 100 MG PO BID, #30 CAP Prov: LYNDSAY NG DO 04/20/17 LYNDSAY NG DO Apr 20, 2017 19:42
[2017-04-20 19:46] LABS: BASOPHILS # (AUTO) 0.1 10^3/uL (0.0-0.1); BASOPHILS % (AUTO) 1 % (0-10); EOSINOPHILS # (AUTO) 0.4 10^3/uL (0.0-0.3); EOSINOPHILS % (AUTO) 3 % (0-10); LYMPHOCYTES # (AUTO) 4.2 X 10^3 (1.0-4.0); LYMPHOCYTES % (AUTO) 35 % (12-44); MEAN CORPUSCULAR HEMOGLOBIN 26 PG (25-34); MEAN CORPUSCULAR HGB CONC 32 G/DL (32-36); MEAN CORPUSCULAR VOLUME 81 FL (80-99); MEAN PLATELET VOLUME 9.3 FL (7.4-10.4); MONOCYTES # (AUTO) 1.3 X 10^3 (0.0-1.0); MONOCYTES % (AUTO) 11 % (0-12); NEUTROPHILS # (AUTO) 5.9 X 10^3 (1.8-7.8); NEUTROPHILS % (AUTO) 50 % (42-75); PLATELET COUNT 182 10^3/uL (130-400); RED BLOOD COUNT 4.37 10^6/uL (4.35-5.85); RED CELL DISTRIBUTION WIDTH 14.1 % (10.0-14.5); WHITE BLOOD COUNT 11.8 10^3/uL (4.3-11.0)
[2017-04-20 19:51] LABS: BILIRUBIN,URINE NEGATIVE (NEGATIVE); KETONES,URINE NEGATIVE (NEGATIVE); LEUKOCYTE ESTERASE ,URINE 3+ (NEGATIVE); NITRITE,URINE POSITIVE (NEGATIVE); PH,URINE 7 (5-9); PROTEIN,URINE 2+ (NEGATIVE); UROBILINOGEN,URINE NORMAL (NORMAL)
[2017-04-20 19:56] LABS: PROTHROMBIN TIME PATIENT 13.7 SEC (12.2-14.7)
[2017-04-20 20:05] LABS: ALBUMIN 3.8 GM/DL (3.2-4.5); BILIRUBIN,TOTAL 0.4 MG/DL (0.1-1.0); CALCIUM 9.2 MG/DL (8.5-10.1); CREATININE SERUM 1.62 MG/DL (0.60-1.30); POTASSIUM 4.3 MMOL/L (3.6-5.0); TOTAL PROTEIN 7.5 GM/DL (6.4-8.2)
--- NOTE | 2017-04-20 20:09 | Diagnostic Imaging Report ---
PROCEDURE: CT urinary tract, rule out kidney stone. TECHNIQUE: Multiple contiguous axial images were obtained through the abdomen and pelvis without the use of intravenous contrast. INDICATION: Hematuria. COMPARISON: None. FINDINGS: Lung bases are clear. The liver, gallbladder, spleen, pancreas, and adrenal glands are grossly unremarkable. There is mild bilateral hydronephrosis and hydroureter. No obvious obstructing calculus is identified. There is some thickening of the urinary bladder. There is a suprapubic catheter in place. Mild prostate enlargement is present. No inflammatory process is seen. The large and small bowel are normal. Visualized vascular structures are unremarkable. Osseous structures are age appropriate. The appendix is normal. IMPRESSION: 1. Mild bilateral hydronephrosis and hydroureter of uncertain etiology. 2. Urinary bladder wall thickening with suprapubic catheter in place. 3. Remainder of the abdomen and pelvis is within normal limits. Dictated by: Dictated on workstation # [id number]
--- NOTE | 2017-04-20 20:11 | Diagnostic Imaging Report ---
INDICATION: Hematuria. COMPARISON: Chest 05/22/2015. FINDINGS: Acute abdominal series demonstrates a normal chest. The bowel gas pattern is unremarkable. There is minimal constipation without obstruction, ileus, or free air. No abnormal calcifications. IMPRESSION: Minimal constipation. Dictated by: Dictated on workstation # [id number]
[2017-04-20] MEDS ORDERED: NITR-65 PO (20:18)
[2017-04-20] MEDS: cefTRIAXone INJECTION 1,000 MG in NS (IVPB) 50 ML IV ONE (20:27)
[2017-04-20 20:40] VITALS: BP 158/87
== END 2017-04-20 20:40 | disposition home or self-care (01) ==
LOC: EDUNIT# 19:11 → ER 19:14
DX: T83.511A Infection and inflammatory reaction due to indwelling urethral catheter, initial encounter (principal); N39.0 Urinary tract infection, site not specified; I12.9 Hypertensive chronic kidney disease with stage 1 through stage 4 chronic kidney disease, or unspecified chronic kidney disease; N18.9 Chronic kidney disease, unspecified; R60.9 Edema, unspecified; K21.9 Gastro-esophageal reflux disease without esophagitis; Z87.81 Personal history of (healed) traumatic fracture; Z86.718 Personal history of other venous thrombosis and embolism; Z87.891 Personal history of nicotine dependence
CPT/HCPCS: 36415; 74022; 74176; 80053; 81000; 85025; 85610; 85730; 87077; 87088; 87186

== ENCOUNTER → 2017-11-15 | Outpatient (CLI) | payer MEDICARE ==
[~2017-11-15] MED LIST changes: +ACHD5005 PO; -HYDR-3812 PO; +HYDR-3870 PO; -HYDR-3874 PO; -METO-274 PO; +METO-395 PO; +NITR-65 PO
--- NOTE | 2017-11-15 14:16 | Diagnostic Imaging Report ---
INDICATION: History of bilateral hydronephrosis. TECHNIQUE: Multiple real-time grayscale sonographic images were obtained of the kidneys. COMPARISON: CT 04/20/2017, ultrasound renal 02/24/2017. FINDINGS: RIGHT KIDNEY: 11.3 x 5.5 x 4.8 cm. LEFT KIDNEY: 12.4 x 6.0 x 4.7 cm. There is diffuse thinning of the renal parenchyma with slightly lobulated appearance. The previously noted hydronephrosis is not appreciated on current study. URINARY BLADDER: Decompressed around a suprapubic catheter. IMPRESSION: 1. Previously noted hydronephrosis is not appreciated on current study. 2. Generalized atrophic changes and thinning of the renal parenchyma involving both kidneys. 3. Bladder decompressed around a catheter balloon. Dictated by: Dictated on workstation # [id number]
== END ==
LOC: RAD 11:36
PROVIDERS: ATTEND Urology
DX: N28.89 Other specified disorders of kidney and ureter (principal); Z87.448 Personal history of other diseases of urinary system
CPT/HCPCS: 76770

== ENCOUNTER → 2019-06-26 | Outpatient (CLI) | payer MEDICARE ==
[~2019-06-26] MED LIST changes: -AMLO5TAB2 PO; +AMLO5TAB9 PO; +LISI1TAB29 PO; -LISI1TAB6 PO; -METO-395 PO; +MTP100TCR PO; -RIVA15TA PO; +RIVA15TA2 PO; -TAMS0.4C98 PO; +TMSL.4C PO
[2019-06-26 14:07] LABS: ALBUMIN 4.3 GM/DL (3.2-4.5); CALCIUM 9.6 MG/DL (8.5-10.1); CREATININE SERUM 1.26 MG/DL (0.60-1.30); PHOSPHORUS 3.2 MG/DL (2.3-4.7); POTASSIUM 4.3 MMOL/L (3.6-5.0)
== END ==
LOC: LAB 13:25
PROVIDERS: ATTEND Family Medicine
DX: Z01.89 Encounter for other specified special examinations (principal)
CPT/HCPCS: 36415; 80069; 87070; 87077; 87186; 87205

== ENCOUNTER → 2019-08-19 | Outpatient (CLI) | payer MEDICARE | LOC: WOUNDCARE 12:29 | PROVIDERS: ATTEND Preventive Medicine Undersea and Hyperbaric Medicine | DX: I96 Gangrene, not elsewhere classified (principal); L97.212 Non-pressure chronic ulcer of right calf with fat layer exposed; I10 Essential (primary) hypertension | CPT/HCPCS: 11042 ==

== ENCOUNTER → 2019-08-26 | Outpatient (CLI) | payer MEDICARE | LOC: WOUNDCARE 14:19 | PROVIDERS: ATTEND Orthopaedic Surgery Hand Surgery | DX: L97.212 Non-pressure chronic ulcer of right calf with fat layer exposed (principal); I10 Essential (primary) hypertension; R60.0 Localized edema | CPT/HCPCS: 11042 ==

== ENCOUNTER → 2019-09-02 | Outpatient (CLI) | payer MEDICARE | LOC: WOUNDCARE 10:02 | PROVIDERS: ATTEND Preventive Medicine Undersea and Hyperbaric Medicine | DX: L97.212 Non-pressure chronic ulcer of right calf with fat layer exposed (principal); I10 Essential (primary) hypertension; R60.0 Localized edema | CPT/HCPCS: 11042 ==

== ENCOUNTER → 2019-09-09 | Outpatient (CLI) | payer MEDICARE | LOC: WOUNDCARE 11:05 | PROVIDERS: ATTEND Preventive Medicine Undersea and Hyperbaric Medicine | DX: I96 Gangrene, not elsewhere classified (principal); L97.212 Non-pressure chronic ulcer of right calf with fat layer exposed; I10 Essential (primary) hypertension; R60.0 Localized edema | CPT/HCPCS: 11042 ==

== ENCOUNTER → 2019-09-16 | Outpatient (CLI) | payer MEDICARE | LOC: WOUNDCARE 10:03 | PROVIDERS: ATTEND Preventive Medicine Undersea and Hyperbaric Medicine | DX: L97.212 Non-pressure chronic ulcer of right calf with fat layer exposed (principal); I10 Essential (primary) hypertension; R60.0 Localized edema | CPT/HCPCS: 99213 ==

== ENCOUNTER → 2019-09-30 | Outpatient (CLI) | payer MEDICARE | LOC: WOUNDCARE 10:03 | PROVIDERS: ATTEND Surgery | DX: L97.212 Non-pressure chronic ulcer of right calf with fat layer exposed (principal); I10 Essential (primary) hypertension; R60.0 Localized edema | CPT/HCPCS: 99212 ==